=== PATIENT | female | born 1950 | race American Indian/Alaskan Native ===

== ENCOUNTER 2017-06-20 13:29 | Outpatient (CLI) | payer MEDICARE, OTHER ==
--- NOTE | 2017-06-20 14:55 | Mammography Report ---
LEFT DIGITAL DIAGNOSTIC MAMMOGRAM: 06/20/17 13:29:00 CLINICAL: For clip placement immediately status post ultrasound biopsy. COMPARISON:[facility] 05/26/17 mammogram. FINDINGS: A biopsy clip is now identified at the site of the previously described lesion and a mass is no longer identified. IMPRESSION: Concordant clip placement status post ultrasound biopsy. BI-RADS CATEGORY: 4A--Mildly Suspicious Pathology pending.
--- NOTE | 2017-06-20 15:05 | Ultrasound Report ---
ULTRASOUND GUIDED NEEDLE CORE BIOPSY LEFT BREAST WITH CLIP PLACEMENT: 06/20/17 CLINICAL: Left breast mass at 3 o'clock 7 cm from the nipple. COMPARISON :[place] [facility] 05/26/17 FINDINGS: The procedure was explained to the patient and informed consent was obtained. Ultrasound demonstrated the previously described multicystic lesion at 3 o'clock 7 cm from the nipple.. I marked the breast with a felt tip marker and a time out was called. The skin was prepped with Betadine and anesthetized with 1% lidocaine. Needle core biopsy was performed through a tiny dermatotomy using ultrasound guidance, 2% lidocaine with epinephrine for deep anesthesia and a 14-gauge Achieve biopsy device. 3 mostly fatty cores were obtained and placed in formalin. A clip was deployed at the site of the the lesion which became less apparent with the biopsy. The patient tolerated the procedure well and there were no apparent complications. Hemostasis was achieved with minimal pressure and a sterile dressing was applied. A two view mammogram demonstrated concordant placement of the clip and no remaining lesion on the mammogram. She left the department in good condition and was given instructions for wound care and followup. IMPRESSION: Uncomplicated ultrasound guided needle core biopsy with clip placement left breast.
== END 2017-06-20 13:30 | disposition home or self-care (01) ==
LOC: SPVWC 13:29
PROVIDERS: ATTEND Surgery
DX: N63.20 Unspecified lump in the left breast, unspecified quadrant (principal)
CPT/HCPCS: 19083; 77065; 88305; A4648

== ENCOUNTER → 2017-11-28 | Outpatient (CLI) | payer MEDICARE, OTHER ==
--- NOTE | 2017-11-28 14:34 | Mammography Report ---
LEFT DIGITAL DIAGNOSTIC MAMMOGRAM with CAD: 11/28/17 10:17:00 CLINICAL: Follow-up after ultrasound biopsy with nonspecific benign pathology. COMPARISON:06/20/17 post biopsy mammogram. Her earlier mammogram and reports from [facility] are not available. FINDINGS: Routine views plus spot magnification MLO and CC views were performed. An 8mm partially circumscribed mass is identified 1 cm from the biopsy clip and I'm not certain that this mass was present on the post biopsy mammogram. IMPRESSION: An 8mm mass in the vicinity of the biopsy clip which is of uncertain significance considering that her pre-biopsy mammogram is not available. BI-RADS CATEGORY: 0--Needs Additional Evaluation RECOMMENDATION: Comparison with the [facility] imaging studies to determine if another biopsy should be done. ACR BI-RADS MAMMOGRAPHIC CODES: 0 = Needs additional imaging evaluation; 1 = Negative; 2 = Benign; 3 = Probably benign; 4 = Suspicious; 5 = Malignant; 6 = Known biopsy-proven malignancy COMMENT: 1. Dense breast tissue, i.e., adenosis, fibrocystic changes, etc., may obscure an underlying neoplasm. 2. Approximately 10% of cancers are not detected with mammography. 3. A negative mammography report should not delay biopsy if a clinically suspicious mass is present. COMMENT: Patient follow-up letters are generated by our [employer] application.
== END | disposition home or self-care (01) ==
LOC: SPVWC 10:17
PROVIDERS: ATTEND Surgery
DX: R92.8 Other abnormal and inconclusive findings on diagnostic imaging of breast (principal); I10 Essential (primary) hypertension; Z87.891 Personal history of nicotine dependence

== ENCOUNTER 2018-04-24 08:27 | Outpatient (CLI) | payer MEDICARE, OTHER ==
--- NOTE | 2018-04-24 09:46 | Mammography Report ---
BILATERAL DIGITAL SCREENING MAMMOGRAM with CAD: 04/24/18 08:27:00 CLINICAL: Routine screening.Status post left benign biopsy of a multicystic lesion at 3 o'clock left breast 06/20/17. The path result: Benign adipose tissue with no ducts or glands. COMPARISON:Left mammograms from 11/28/17 and 06/20/17 and bilateral screening mammogram [facility] 04/21/17 FINDINGS: The breasts are mostly fatty with a few bilateral scattered fibroglandular densities. The previous described oval low density circumscribed nodule of the upper outer left breast is slightly smaller and less dense. It measures approximately 7 x 7.7 x 6 mm and a biopsy clip is located 1.2 cm from it. No architectural distortion or suspicious calcifications.The right breast is negative. IMPRESSION: A slightly smaller 7.7 mm left upper outer nodule which appears to have been biopsied. However, recommend recall for targeted left breast ultrasound to reevaluate the multicystic lesion described at 3 o'clock 10 cm from the nipple. BI-RADS CATEGORY: 0 -- Additional Imaging Evaluation Required ACR BI-RADS MAMMOGRAPHIC CODES: 0 = Needs additional imaging evaluation; 1 = Negative; 2 = Benign; 3 = Probably benign; 4 = Suspicious; 5 = Malignant; 6 = Known biopsy-proven malignancy COMMENT: 1. Dense breast tissue, i.e., adenosis, fibrocystic changes, etc., may obscure an underlying neoplasm. 2. Approximately 10% of cancers are not detected with mammography. 3. A negative mammography report should not delay biopsy if a clinically suspicious mass is present. COMMENT: Patient follow-up letters are generated via our [employer] application.
== END 2018-04-24 08:28 | disposition home or self-care (01) ==
LOC: SPVWC 08:27
PROVIDERS: ATTEND Surgery
DX: Z12.31 Encounter for screening mammogram for malignant neoplasm of breast (principal); I10 Essential (primary) hypertension; Z87.891 Personal history of nicotine dependence
CPT/HCPCS: 77067

== ENCOUNTER 2018-05-01 09:03 | Outpatient (CLI) | payer MEDICARE, OTHER ==
--- NOTE | 2018-05-01 10:22 | Ultrasound Report ---
LEFT BREAST ULTRASOUND: 05/01/18 09:03:00 CLINICAL: Status post benign ultrasound guided needle biopsy of a septated cystic lesion at 3 o'clock 7 cm from the nipple on 06/20/17. A previous report had described the lesion to be at 3 o'clock 10 cm from the nipple. COMPARISON: 06/20/17 ultrasound and recent mammograms. FINDINGS: Ultrasound of the left breast demonstrated a biopsy clip at 3 o'clock 7 cm from the nipple and no mass or cyst. The breast was also scanned at 3 o'clock 10 cm from nipple and revealed no mass or cyst in that location. IMPRESSION: Negative left breast ultrasound. BI-RADS 1 - - Negative RECOMMENDATION: Return to routine mammographic screening.
== END 2018-05-01 09:04 | disposition home or self-care (01) ==
LOC: SPVWC 09:03
PROVIDERS: ATTEND Surgery
DX: R92.8 Other abnormal and inconclusive findings on diagnostic imaging of breast (principal); I10 Essential (primary) hypertension; Z87.891 Personal history of nicotine dependence

== ENCOUNTER 2019-04-30 08:31 | Outpatient (CLI) | payer MEDICARE, OTHER ==
--- NOTE | 2019-04-30 10:36 | Mammography Report ---
DIGITAL SCREENING MAMMOGRAM WITH CAD, 04/30/2019 INDICATION: Routine screening mammography. Status post left benign ultrasound guided needle biopsy 06/20/2017. TECHNIQUE: Digital bilateral 2D mammography was obtained in the craniocaudal and mediolateral obliq ue projections. This examination was interpreted with the benefit of Computer-Aided Detection analysi s. COMPARISON: 04/24/2018 and 04/21/2017 FINDINGS: Breast Density: The breasts are almost entirely fatty. There is no evidence of new mass, suspicious calcifications or architectural distortion in either [place]rews ast. A left outer biopsy clip is adjacent to a circumscribed nodule which has features suggestive of a lymph node but correlates with the previously biopsied nodule. IMPRESSION: No mammographic evidence of malignancy. Follow up recommendation: Routine yearly BI-RADS Category 2: Benign. A "normal" or negative report should not discourage follow up or biopsy of a clinically significant f inding. A written summary of these findings will be mailed to the patient. The patient will be entered into a mammography reporting system which will generate a reminder letter for the patient's next appointmen t at the appropriate interval. The [employer] recommends yearly mammograms starting at age 40 and continuing as l carey as a woman is in good health. Breast MRI is recommended for women with an approximate 20-25% or greater lifetime risk of breast cancer, including women with a strong family history of breast or ova gilles cancer or who have been treated for Hodgkin's disease. Signer Name: Donald Perea MD Signed: 04/30/2019 10:32 AM Workstation Name: [id number]
== END 2019-04-30 08:32 | disposition home or self-care (01) ==
LOC: SPVWC 08:31
PROVIDERS: ATTEND Surgery
DX: Z12.31 Encounter for screening mammogram for malignant neoplasm of breast (principal); N64.89 Other specified disorders of breast
CPT/HCPCS: 77067

== ENCOUNTER 2020-05-05 08:37 | Outpatient (CLI) | payer MEDICARE, OTHER ==
--- NOTE | 2020-05-06 07:59 | Mammography Report ---
DIGITAL SCREENING MAMMOGRAM WITH CAD, 05/05/2020 CLINICAL INFORMATION / INDICATION: Routine screening mammography. TECHNIQUE: Digital bilateral 2D mammography was obtained in the craniocaudal and mediolateral obliqu e projections. This examination was interpreted with the benefit of Computer-Aided Detection analysis . COMPARISON: 04/30/2019, 05/01/2018, 04/24/2018 FINDINGS: Breast Density: The breasts are almost entirely fatty. No dominant mass, suspicious calcifications, or architectural distortion in either breast. A biopsy clip is again seen in the upper outer left breast adjacent to a stable nodule. Bilateral celia ign-appearing calcifications are unchanged. IMPRESSION: No mammographic evidence of malignancy. Follow up recommendation: Routine yearly BI-RADS Category 2: Benign. A "normal" or negative report should not discourage follow up or biopsy of a clinically significant f inding. A written summary of these findings will be mailed to the patient. The patient will be entered into a mammography reporting system which will generate a reminder letter for the patient's next appointmen t at the appropriate interval. The [employer] recommends yearly mammograms starting at age 40 and continuing as l carey as a woman is in good health. Breast MRI is recommended for women with an approximate 20-25% or greater lifetime risk of breast cancer, including women with a strong family history of breast or ova gilles cancer or who have been treated for Hodgkin's disease. Signer Name: Andrews Cowart MD Signed: 05/06/2020 7:54 AM Workstation Name: [id number]
== END 2020-05-05 08:38 | disposition home or self-care (01) ==
LOC: SPVWC 08:37
PROVIDERS: ATTEND Surgery
DX: Z12.31 Encounter for screening mammogram for malignant neoplasm of breast (principal); N64.89 Other specified disorders of breast
CPT/HCPCS: 77067